=== PATIENT | female | born 1995 | race Caucasian/White ===

== ENCOUNTER 2018-04-19 21:14 | Emergency (ER) | payer OTHER | END 2018-04-19 23:53 | disposition home or self-care (01) | LOC: M ED 21:14 | DX: S00.83XA Contusion of other part of head, initial encounter (principal); W22.8XXA Striking against or struck by other objects, initial encounter; Y92.89 Other specified places as the place of occurrence of the external cause; Y93.75 Activity, martial arts | CPT/HCPCS: 70450 ==

== ENCOUNTER 2018-05-22 16:35 | Emergency (ER) | payer OTHER | END 2018-05-22 18:19 | disposition home or self-care (01) | LOC: M ED 16:35 | DX: S00.432A Contusion of left ear, initial encounter (principal); X58.XXXA Exposure to other specified factors, initial encounter; Y92.89 Other specified places as the place of occurrence of the external cause; Y93.75 Activity, martial arts; Z79.3 Long term (current) use of hormonal contraceptives | CPT/HCPCS: 99282 ==